=== PATIENT | female | born 1955 | race Caucasian/White ===

== ENCOUNTER → 2017-06-06 | Outpatient (CLI) | payer MEDICARE ==
[~2017-06-06] MED LIST: ALBU8.5H3 INH; AMIT100T PO; BUDE10.22 INH; BUTA1CAP58 PO; GABA600T2 PO; SIMV20TA3 PO; TOPI100T24 PO; VENL150C PO
== END | disposition home or self-care (01) ==
LOC: CFH 12:30
PROVIDERS: ATTEND Internal Medicine
DX: R91.8 Other nonspecific abnormal finding of lung field (principal); J98.11 Atelectasis
CPT/HCPCS: 71250

== ENCOUNTER → 2017-08-09 | Outpatient (CLI) | payer MEDICARE ==
[~2017-08-09] MED LIST changes: -ALBU8.5H3 INH; +ALBU8.5H8 INH
== END | disposition home or self-care (01) ==
LOC: CFH 09:59
PROVIDERS: ATTEND Family Medicine
DX: R19.09 Other intra-abdominal and pelvic swelling, mass and lump (principal); K46.9 Unspecified abdominal hernia without obstruction or gangrene
CPT/HCPCS: 76705

== ENCOUNTER → 2017-10-24 | Outpatient (CLI) | payer MEDICARE ==
[~2017-10-24] MED LIST changes: +CODE1CAP7 PO; +GABA300C10 PO; +UMEC1DIS INH
[2017-10-24 14:28] LABS: HEMATOCRIT 44.2 % (34.6-47.8); HEMOGLOBIN 14.8 g/dL (11.7-16.4); WHITE BLOOD COUNT 6.2 x10^3/uL (3.4-10)
[2017-10-24 14:39] LABS: ASPARTATE AMINO TRANSFERASE 20 U/L (15-37); BLOOD UREA NITROGEN 12 mg/dL (7-18)
== END | disposition home or self-care (01) ==
LOC: STAR 13:24
PROVIDERS: ATTEND Surgery
DX: Z01.818 Encounter for other preprocedural examination (principal); K43.9 Ventral hernia without obstruction or gangrene; R94.31 Abnormal electrocardiogram [ECG] [EKG]; J45.909 Unspecified asthma, uncomplicated; M51.36 Other intervertebral disc degeneration, lumbar region; K21.9 Gastro-esophageal reflux disease without esophagitis; F32.9 Major depressive disorder, single episode, unspecified; E78.5 Hyperlipidemia, unspecified; Z90.49 Acquired absence of other specified parts of digestive tract
CPT/HCPCS: 36415; 80053; 85025; 93005

== ENCOUNTER 2017-10-31 10:02 | Day surgery (SDC) | payer MEDICARE ==
[2017-10-24 13:53] VITALS: BP 108/70
[~2017-10-31] VITALS: Ht 160 cm; Wt 68.2 kg
[2017-10-31] MEDS ORDERED: LACTATED RINGERS 1,000 ML IV SCH (10:26)
[2017-10-31] MEDS ORDERED: PROMETHAZINE 25 MG/ML, 1ML IV PRN (13:00)
[2017-10-31] MEDS ORDERED: ONDANSETRON 2MG/ML, 2ML IVPush PRN (13:00)
[2017-10-31] MEDS ORDERED: ALBUTEROL SULFATE 2.5 MG/3 ML NPPB PRN (13:00)
[2017-10-31] MEDS ORDERED: FENTANYL PF 100 MCG/2ML IV PRN (13:00)
[2017-10-31] MEDS ORDERED: OXYcodone 5 MG/5 ML ORAL.SOL UDC PO PRN (13:00)
[2017-10-31] MEDS ORDERED: MEPERIDINE/PF 25MG/0.5ML IVPush PRN (13:00)
[2017-10-31] MEDS ORDERED: HYDROmorphone 1 MG/ML, 1ML IV PRN (13:00)
[2017-10-31] MEDS ORDERED: LABETALOL 5MG/ML, 20ML IV PRN (13:00)
[2017-10-31] MEDS ORDERED: hydrALAzine 20 MG/ML, 1ML IV PRN (13:00)
[2017-10-31] MEDS ORDERED: ACETAMINOPHEN 325 MG TABLET PO PRN (13:00)
[2017-10-31] MEDS ORDERED: GLYCOPYRROLATE 0.2MG/1ML, 5ML ONE (13:12)
[2017-10-31] MEDS ORDERED: CEFAZOLIN 1,000 MG ONE (13:12)
[2017-10-31] MEDS ORDERED: PHENYLEPHRINE 10 MG/ML ONE (13:12)
[2017-10-31] MEDS ORDERED: NEOSTIGMINE 1 MG/ML, 10ML ONE (13:12)
[2017-10-31] MEDS ORDERED: ROCURONIUM 10 MG/ML,10ML ONE (13:12)
[2017-10-31] MEDS ORDERED: ONDANSETRON 2MG/ML, 2ML ONE (13:12)
[2017-10-31] MEDS ORDERED: PROPOFOL 10 MG/ML, 20ML ONE (13:12)
[2017-10-31] MEDS ORDERED: DEXAMETHASONE 4 MG/ML, 1ML ONE (13:12)
[2017-10-31] MEDS ORDERED: BUPIVACAINE/PF 0.25% INFIL ONE (13:36)
[2017-10-31] MEDS ORDERED: OXYcodone/APAP 5/325MG TABLET PO PRN (18:00)
[2017-10-31] MEDS ORDERED: HYDROmorphone 2 MG/ML, 1ML IVPush PRN (18:00)
== END 2017-10-31 18:45 ==
LOC: OUT 10:02
PROVIDERS: ATTEND Surgery
DX: K43.0 Incisional hernia with obstruction, without gangrene (principal); J45.909 Unspecified asthma, uncomplicated; K21.9 Gastro-esophageal reflux disease without esophagitis; K44.9 Diaphragmatic hernia without obstruction or gangrene; E78.5 Hyperlipidemia, unspecified; G43.909 Migraine, unspecified, not intractable, without status migrainosus; Z90.49 Acquired absence of other specified parts of digestive tract; Z98.890 Other specified postprocedural states; Z87.891 Personal history of nicotine dependence; Z88.8 Allergy status to other drugs, medicaments and biological substances
CPT/HCPCS: 49566; 49568; C1781; J0690; J1100; J1170; J2370; J2405; J2704; J2710; J3010; J3490; J7120

== ENCOUNTER → 2018-10-20 | Outpatient (CLI) | payer MEDICARE | END | disposition home or self-care (01) | LOC: EDSTATUS 10-10 13:00 → CFH 13:58 → EDSTATUS 14:00 | PROVIDERS: ATTEND Internal Medicine | DX: I65.21 Occlusion and stenosis of right carotid artery (principal) | CPT/HCPCS: 93880 ==

== ENCOUNTER → 2018-10-24 | Outpatient (CLI) | payer MEDICARE | END | disposition home or self-care (01) | LOC: CVU 08:12 | PROVIDERS: ATTEND Internal Medicine | DX: I73.9 Peripheral vascular disease, unspecified (principal); M79.7 Fibromyalgia; J44.9 Chronic obstructive pulmonary disease, unspecified; E78.5 Hyperlipidemia, unspecified; R20.2 Paresthesia of skin; R20.0 Anesthesia of skin; Z87.891 Personal history of nicotine dependence | CPT/HCPCS: 93922; 93925 ==

== ENCOUNTER 2018-12-04 10:38 | Outpatient (CLI) | payer MEDICARE ==
[~2018-12-04 10:38] MED LIST changes: -GABA600T2 PO; +GABA600T7 PO
== END 2018-12-04 23:59 | disposition home or self-care (01) ==
LOC: CFH 10:38
PROVIDERS: ATTEND Internal Medicine
DX: J43.2 Centrilobular emphysema (principal); I70.0 Atherosclerosis of aorta; R91.8 Other nonspecific abnormal finding of lung field; Z90.49 Acquired absence of other specified parts of digestive tract
CPT/HCPCS: 71250

== ENCOUNTER 2019-05-12 17:30 | Observation (INO) | payer MEDICARE ==
[~2019-05-12] VITALS: Ht 160 cm; Wt 69.0 kg
[2019-05-12] MEDS ORDERED: ASPIRIN 81 MG TABLET CHEW ONE (18:20)
[2019-05-12] MEDS ORDERED: ASPIRIN 81 MG TABLET CHEW PO ONE (18:30)
[2019-05-12 18:33] LABS: BASOPHILS # (AUTO) 0.04 x10^3/uL (0-0.1); BASOPHILS % (AUTO) 1 % (0-1); EOSINOPHILS # (AUTO) 0.17 x10^3/uL (0-0.4); EOSINOPHILS % (AUTO) 3 % (1-7); LYMPHOCYTES # (AUTO) 2.02 x10^3/uL (1-3.4); LYMPHOCYTES % (AUTO) 29 % (22-44); MD NO; MEAN CORPUSCULAR HEMOGLOBIN 31.8 pg (27.0-34.8); MEAN CORPUSCULAR HGB CONC 33.1 g/dL (32.4-35.8); MEAN CORPUSCULAR VOLUME 96.1 fL (80-100); MEAN PLATELET VOLUME 7.5 fL (7.4-10.4); MONOCYTES # (AUTO) 0.49 x10^3/uL (0.2-0.8); MONOCYTES % (AUTO) 7 % (2-9); NEUTROPHILS # (AUTO) 4.22 x10^3/uL (1.8-6.8); NEUTROPHILS % (AUTO) 61 % (42-75); PLATELET COUNT 258 x10^3/uL (130-400); RED BLOOD COUNT 4.19 x10^6/uL (3.82-5.3); RED CELL DISTRIBUTION WIDTH 12.8 % (9.6-15.2)
[2019-05-12 18:43] LABS: ALBUMIN 3.8 g/dL (3.4-5.0); ANION GAP 7 mmol/L (5-15); CHLORIDE 106 mmol/L (98-107)
[2019-05-12 18:46] LABS: TROPONIN I < 0.015 ng/mL (0.000-0.045)
[2019-05-12] MEDS ORDERED: ENALAPRILAT 1.25 MG/ML, 2ML IVPush PRN (20:30)
[2019-05-12] MEDS ORDERED: ACETAMINOPHEN 325 MG TABLET PO PRN (20:30)
[2019-05-12] MEDS ORDERED: ONDANSETRON ODT 4 MG PO PRN (20:30)
[2019-05-12] MEDS ORDERED: DOCUSATE 100 MG CAPSULE PO PRN (20:30)
[2019-05-12] MEDS: HEPARIN 5,000 UNITS/ML, 1ML SQ SCH (22:43)
[2019-05-13] MEDS ORDERED: FLUT1AER INH (00:16)
[2019-05-13] MEDS ORDERED: TOPI15CA4 PO (00:16)
[2019-05-13] MEDS ORDERED: GABA-826 PO (00:16)
[2019-05-13] MEDS ORDERED: SIMV20TA3 PO (00:16)
[2019-05-13] MEDS ORDERED: VENL25TA PO (00:16)
[2019-05-13] MEDS ORDERED: CODE1CAP7 PO (00:16)
[2019-05-13 01:09] LABS: TROPONIN I < 0.015 ng/mL (0.000-0.045)
[2019-05-13 01:22] VITALS: BP 95/65
[2019-05-13] MEDS ORDERED: ALBUTEROL/IPRATROPIUM 2.5MG/0.5MG, 3 ML NPPB SCH ×2 (03:00→15:00)
[2019-05-13] MEDS: HEPARIN 5,000 UNITS/ML, 1ML SQ SCH ×2 (05:52→14:00)
[2019-05-13 06:14] LABS: BASOPHILS # (AUTO) 0.04 x10^3/uL (0-0.1); BASOPHILS % (AUTO) 1 % (0-1); EOSINOPHILS # (AUTO) 0.21 x10^3/uL (0-0.4); EOSINOPHILS % (AUTO) 3 % (1-7); LYMPHOCYTES # (AUTO) 2.45 x10^3/uL (1-3.4); LYMPHOCYTES % (AUTO) 34 % (22-44); MD NO; MEAN CORPUSCULAR HEMOGLOBIN 31.6 pg (27.0-34.8); MEAN CORPUSCULAR VOLUME 95.7 fL (80-100); MEAN PLATELET VOLUME 7.6 fL (7.4-10.4); MONOCYTES # (AUTO) 0.39 x10^3/uL (0.2-0.8); MONOCYTES % (AUTO) 6 % (2-9); NEUTROPHILS # (AUTO) 4.03 x10^3/uL (1.8-6.8); NEUTROPHILS % (AUTO) 57 % (42-75); PLATELET COUNT 276 x10^3/uL (130-400); RED BLOOD COUNT 4.46 x10^6/uL (3.82-5.3); RED CELL DISTRIBUTION WIDTH 12.3 % (9.6-15.2)
[2019-05-13 06:20] LABS: ANION GAP 6 mmol/L (5-15); CALCIUM 9.2 mg/dL (8.5-10.1); CHLORIDE 107 mmol/L (98-107); CREATININE 1.07 mg/dL (0.55-1.02)
[2019-05-13 06:24] LABS: TROPONIN I < 0.015 ng/mL (0.000-0.045)
[2019-05-13 08:30] VITALS: BP 123/81
[2019-05-13 12:41] LABS: CHOL/HDL RATIO 2.2
[2019-05-13 13:20] VITALS: BP 134/89
[2019-05-13] MEDS ORDERED: BUDESONIDE 0.5 MG/2 ML INHA NPPB SCH (21:00)
== END 2019-05-13 17:49 | disposition home or self-care (01) ==
LOC: ED 19:06 → INTOOBSV 19:11 → EDIP 19:11 → ED 19:15 → 5SO 20:41
PROVIDERS: ADMIT Family Medicine; ATTEND Family Medicine
DX: R07.89 Other chest pain (principal); E78.5 Hyperlipidemia, unspecified; G43.909 Migraine, unspecified, not intractable, without status migrainosus; I65.29 Occlusion and stenosis of unspecified carotid artery; M41.9 Scoliosis, unspecified; M79.7 Fibromyalgia; H02.402 Unspecified ptosis of left eyelid; J44.9 Chronic obstructive pulmonary disease, unspecified; K21.9 Gastro-esophageal reflux disease without esophagitis; M47.898 Other spondylosis, sacral and sacrococcygeal region; J96.10 Chronic respiratory failure, unspecified whether with hypoxia or hypercapnia; Z87.891 Personal history of nicotine dependence; Z79.899 Other long term (current) drug therapy; Z88.8 Allergy status to other drugs, medicaments and biological substances
CPT/HCPCS: 36415; 71045; 80048; 80061; 82040; 84484; 85025; 93005; 93017; 93306; 94640; 96372; 99284; G0378; J1644; J7620

== ENCOUNTER 2019-08-03 12:21 | Outpatient (CLI) | payer MEDICARE ==
[~2019-08-03 12:21] MED LIST changes: +FLUT1AER INH; +GABA-826 PO; +REGADENOSON 0.4 MG/5 ML SYRINGE ONE; +TOPI15CA4 PO; +VENL25TA PO
== END 2019-08-03 23:59 | disposition home or self-care (01) ==
LOC: CFH 12:21
PROVIDERS: ATTEND Internal Medicine Cardiovascular Disease
DX: R07.89 Other chest pain (principal); J44.9 Chronic obstructive pulmonary disease, unspecified
CPT/HCPCS: 78452; 93017; A9502; J2785

== ENCOUNTER → 2019-11-24 | Outpatient (CLI) | payer MEDICARE ==
[~2019-11-24] MED LIST changes: -REGADENOSON 0.4 MG/5 ML SYRINGE ONE
== END | disposition home or self-care (01) ==
LOC: CFH 13:44
PROVIDERS: ATTEND Nurse Practitioner
DX: J18.1 Lobar pneumonia, unspecified organism (principal)
CPT/HCPCS: 71250

== ENCOUNTER → 2020-08-29 | Outpatient (CLI) | payer MEDICARE ==
[~2020-08-29] MED LIST changes: +REGADENOSON 0.4 MG/5 ML SYRINGE ONE; +SIMV20TA19 PO; -SIMV20TA3 PO
== END | disposition home or self-care (01) ==
LOC: RAD 13:12
PROVIDERS: ATTEND Internal Medicine Cardiovascular Disease
DX: R07.89 Other chest pain (principal)
CPT/HCPCS: 78452; 93017; A9502; J2785

== ENCOUNTER 2021-02-10 16:13 | Emergency (ER) | payer MEDICARE ==
[~2021-02-10] VITALS: Ht 160 cm; Wt 63.0 kg
[~2021-02-10 16:13] MED LIST changes: -REGADENOSON 0.4 MG/5 ML SYRINGE ONE; -VENL25TA PO; +VENL25TA33 PO
--- NOTE | 2021-02-10 16:43 | NUR ---
THE PT IS A 65F WITH COMPLAINTS OF NAUSEA, NO PO FLUIDS/SOLIDS X 2 DAYS. HAD EGD AND COLONOSCOPY YESTERDAY (HAD ABNORMAL FINDING IN ESOPHAGUS THAT THEY BIOPSIED) SUNDANCE DIGESTIVE [place]-DR. Will SPOUSE AT BEDSIDE. BP AND SP02 MONITORS IN PLACE. CALL LIGHT WITHIN REACH.
[2021-02-10] MEDS ORDERED: TIOT18CA INH (16:46)
[2021-02-10] MEDS ORDERED: ONDANSETRON 2MG/ML, 2ML ONE (17:16)
[2021-02-10] MEDS ORDERED: SODIUM CHLORIDE FLUSH 10ML SYR IVF ONE (17:30)
[2021-02-10] MEDS ORDERED: ONDANSETRON 2MG/ML, 2ML IVPush ONE (17:30)
[2021-02-10] MEDS ORDERED: SODIUM CHLORIDE 0.9% 1,000ML IVBOLUS ONE (17:30)
--- NOTE | 2021-02-10 17:45 | NUR ---
PT IS A DIFFICULT STICK. MULTIPLE ATTEMPTS MADE, UNABLE TO ACCESS. U/S GUIDED ATTEMPT NOW. SPOUSE AT BEDSIDE.
[2021-02-10 18:14] LABS: BASOPHILS % (AUTO) 0 % (0-1); EOSINOPHILS % (AUTO) 0 % (1-7); LYMPHOCYTES % (AUTO) 11 % (22-44); MEAN CORPUSCULAR HEMOGLOBIN 30.6 pg (27.0-34.8); MEAN CORPUSCULAR HGB CONC 33.9 g/dL (32.4-35.8); MEAN PLATELET VOLUME 7.5 fL (7.4-10.4); MONOCYTES % (AUTO) 3 % (2-9); NEUTROPHILS % (AUTO) 86 % (42-75); PLATELET COUNT 332 x10^3/uL (130-400); RED BLOOD COUNT 5.01 x10^6/uL (3.82-5.3); RED CELL DISTRIBUTION WIDTH 13.7 % (9.6-15.2)
[2021-02-10 18:27] LABS: ANION GAP 7 mmol/L (5-15); CALCIUM 9.2 mg/dL (8.5-10.1); CHLORIDE 110 mmol/L (98-107)
[2021-02-10 18:33] LABS: ALANINE AMINOTRANSFERASE 20 U/L (12-78); ALKALINE PHOSPHATASE 95 U/L (45-117); BILIRUBIN,TOTAL 0.2 mg/dL (0.2-1.0); CREATININE 0.78 mg/dL (0.55-1.02); TOTAL PROTEIN 7.9 g/dL (6.4-8.2); TROPONIN I < 0.015 ng/mL (0.000-0.045)
[2021-02-10 18:39] LABS: MD SCAN
[2021-02-10 19:41] VITALS: BP 143/62
--- NOTE | 2021-02-10 19:46 | NUR ---
Patient/Caregiver given discharge instructions and they have confirmed that they understand the instructions. Patient out of ED in WC with spouse. IV dc'd intact. Rx reviewed with patient. Pt instructed to f/u with gastro.
== END 2021-02-10 19:48 | disposition home or self-care (01) ==
LOC: ED 18:39
DX: R11.0 Nausea (principal); J44.9 Chronic obstructive pulmonary disease, unspecified; K21.9 Gastro-esophageal reflux disease without esophagitis; I25.2 Old myocardial infarction; E78.5 Hyperlipidemia, unspecified; G43.909 Migraine, unspecified, not intractable, without status migrainosus; Z88.8 Allergy status to other drugs, medicaments and biological substances; Z79.899 Other long term (current) drug therapy; Z87.891 Personal history of nicotine dependence
CPT/HCPCS: 36415; 80053; 83690; 84484; 85025; 93005; 96361; 96374; 99284; J2405; J7030

== ENCOUNTER → 2021-02-24 | Outpatient (CLI) | payer MEDICARE ==
[~2021-02-24] MED LIST changes: +TIOT18CA INH
== END | disposition home or self-care (01) ==
LOC: CFH 13:48
PROVIDERS: ATTEND Registered Nurse
DX: Z12.2 Encounter for screening for malignant neoplasm of respiratory organs (principal); Z87.891 Personal history of nicotine dependence
CPT/HCPCS: 71271